=== PATIENT | female | born 1975 | race Caucasian/White ===

== ENCOUNTER 2021-06-30 13:20 | Emergency (ER) | payer MEDICARE, OTHER ==
[~2021-06-30 13:20] MED LIST: EFFEXOR XR150 MG PO; LEVAQUIN500 MG PO; PHENERGAN12.5 M1 PO; SYNTHROID25 MCG PO; SYNTHROID50 MCG PO
[2021-06-30 15:03] LABS: BASOPHIL 0.8 % (0-2); EOSINOPHIL 1.7 % (0-5); HCT 43.3 % (37.0-47.0); HGB 14.2 g/dl (12.5-16.0); LYMPHOCYTE 35.1 % (15-48); MCH 30.1 pg (25.0-31.0); MCHC 32.8 g/dL (32.0-36.0); MCV 91.7 fL (78.0-100.0); MONOCYTE 6.7 % (0-12); MPV 10.7 fL (6.0-9.5); NEUTROPHIL 55.5 % (41-80); NRBC 0; PLT 236 K/uL (150-400); RBC 4.72 M/uL (4.20-5.40); RDW 12.8 % (11.5-14.0); WBC 6.5 K/uL (4.0-10.5)
[2021-06-30 15:07] LABS: PROTHROMBIN TIME 12.6 SECONDS (11.8-13.4)
[2021-06-30 15:13] LABS: ALBUMIN 4.3 g/dL (3.4-5.0); ALKALINE PHOSHATASE 71 U/L (46-116); ALT 81 U/L (14-59); AST 83 U/L (15-37); BILIRUBIN - TOTAL 0.6 mg/dL (0.2-1.0); BUN 14 mg/dL (7-18); BUN/CREAT RATIO (CALC) 13.3 RATIO; CHLORIDE 99 mmol/L (98-107); CO2 (BICARBONATE) 29 mmol/L (21-32); CREATININE 1.05 mg/dL (0.51-0.95); GLOBULIN (CALCULATION) 3.8 g/dL; GLUCOSE 122 mg/dL (74-106); TOTAL PROTEIN 8.1 g/dL (6.4-8.2)
[2021-06-30 16:30] LABS: BILIRUBIN NEGATIVE (NEGATIVE); BLOOD NEGATIVE Ery/uL (NEGATIVE); COLOR YELLOW (YELLOW); GLUCOSE (U) NORMAL (NORMAL); LEUKOCYTES 2+ Leu/uL (NEGATIVE); NITRITE POSITIVE (NEGATIVE); PROTEIN NEGATIVE (NEGATIVE); UROBILINOGEN 0.2 mg/dL (0.2-1.0)
[2021-06-30 16:40] LABS: BACTERIA 3+; CLARITY HAZY (CLEAR); URINARY WBC TNTC
[2021-06-30] MEDS ORDERED: MACROBID100 MG PO (18:46)
[2021-06-30] MEDS ORDERED: ONDANSETRON ODT4 MG PO (18:46)
[2021-06-30 19:25] LABS: INFLUENZA A NAA NEGATIVE (NEGATIVE)
[2021-06-30 19:27] LABS: CORONAVIRUS 2019 SARS-COV-2 POSITIVE (NEGATIVE)
== END 2021-06-30 18:53 | disposition home or self-care (01) ==
LOC: FER 13:20
PROVIDERS: Physician Assistant
DX: U07.1 COVID-19 (principal); R07.9 Chest pain, unspecified; N39.0 Urinary tract infection, site not specified; F41.9 Anxiety disorder, unspecified; I12.9 Hypertensive chronic kidney disease with stage 1 through stage 4 chronic kidney disease, or unspecified chronic kidney disease; N18.9 Chronic kidney disease, unspecified
CPT/HCPCS: 36415; 71045; 80053; 81001; 84484; 85025; 85610; 93005; U0002